=== PATIENT | female | born 1990 | race Caucasian/White ===

== ENCOUNTER 2016-08-09 19:08 | Emergency (ER) | payer OTHER ==
[~2016-08-09] VITALS: Ht 154.9 cm; Wt 50.0 kg
[2016-08-09 19:40] VITALS: BP 147/95
[2016-08-09 20:19] LABS: GLUCOSE, URINE (UA) NEGATIVE (NEGATIVE); KETONES,URINE NEGATIVE (NEGATIVE); LEUKOCYTE ESTERASE ,URINE TRACE (NEGATIVE); OCCULT BLOOD,URINE MODERATE (NEGATIVE); PROTEIN,URINE SEE CONFIRM (NEGATIVE)
[2016-08-09 20:22] LABS: APPEARANCE,URINE CLOUDY (CLEAR)
[2016-08-09 20:30] LABS: SULFOSALICYLIC ACID,URINE 2+ (Negative)
[2016-08-09 20:33] LABS: RBC,URINE 51-100 /HPF (0-2)
[2016-08-09 20:34] LABS: HYALINE CASTS, URINE 0-2 /LPF (None Seen); SQUAMOUS EPITHELIAL CELL,UR Moderate /LPF (None Seen)
== END 2016-08-09 22:17 | disposition home or self-care (01) ==
LOC: EMS 19:10
DX: N39.0 Urinary tract infection, site not specified (principal); R03.0 Elevated blood-pressure reading, without diagnosis of hypertension; F17.210 Nicotine dependence, cigarettes, uncomplicated
CPT/HCPCS: 87086; 99284